=== PATIENT | female | born 1995 | race Caucasian/White ===

== ENCOUNTER → 2016-12-01 | Outpatient (CLI) | payer MEDICAID ==
[~2016-12-01] MED LIST: PREN27TA PO
== END ==
LOC: HPND 10:41
PROVIDERS: ATTEND Family Medicine
DX: Z36 Encounter for antenatal screening of mother (principal)
CPT/HCPCS: 76801

== ENCOUNTER → 2016-12-21 | Outpatient (CLI) | payer MEDICAID | LOC: HPND 08:40 | PROVIDERS: ATTEND Family Medicine | DX: O26.891 Other specified pregnancy related conditions, first trimester (principal); R10.0 Acute abdomen | CPT/HCPCS: 36415; 76813 ==

== ENCOUNTER → 2017-01-25 | Outpatient (CLI) | payer MEDICAID | LOC: HPND 10:49 | PROVIDERS: ATTEND Family Medicine | DX: O28.3 Abnormal ultrasonic finding on antenatal screening of mother (principal); O09.292 Supervision of pregnancy with other poor reproductive or obstetric history, second trimester; Z3A.18 18 weeks gestation of pregnancy | CPT/HCPCS: 76811 ==

== ENCOUNTER → 2017-02-22 | Outpatient (CLI) | payer MEDICAID ==
[~2017-02-22] MED LIST changes: +PRENTAB85; +[UNRECOGNIZED DRUG - CODE] I-DERMAL
== END ==
LOC: HPND 10:49
PROVIDERS: ATTEND Family Medicine
DX: O28.3 Abnormal ultrasonic finding on antenatal screening of mother (principal); Z3A.22 22 weeks gestation of pregnancy
CPT/HCPCS: 76816; 76825; 76827; 93325

== ENCOUNTER → 2017-04-13 | Outpatient (CLI) | payer MEDICAID ==
[~2017-04-13] MED LIST changes: -PREN27TA PO; -[UNRECOGNIZED DRUG - CODE] I-DERMAL
== END ==
LOC: HPND 12:58
PROVIDERS: ATTEND Family Medicine
DX: O28.3 Abnormal ultrasonic finding on antenatal screening of mother (principal); O41.00X0 Oligohydramnios, unspecified trimester, not applicable or unspecified
CPT/HCPCS: 76815

== ENCOUNTER → 2017-04-27 | Outpatient (CLI) | payer MEDICAID | LOC: HPND 09:39 | PROVIDERS: ATTEND Family Medicine | DX: O09.293 Supervision of pregnancy with other poor reproductive or obstetric history, third trimester (principal) | CPT/HCPCS: 76816 ==

== ENCOUNTER 2017-06-27 16:48 | Emergency (ER) | payer MEDICAID ==
--- NOTE | 2017-06-27 17:46 | PD ---
HPI Chief Complaint decreased movement Date Seen: Jun 27, 2017 Time Seen: 17:41 Travel History International Travel<30 Days: No Contact w/Intl Traveler<30Days: No Known Affected Area: No History of Present Illness HPI Patient is a 22-year-old female at 40/2 with a MICHELE of 06/25/17 based on LMP. Presented to the ED from her physician Dr. Beckwith due to reported decreased movement. heart tones in clinic were reassuring. No apparent complications during this . Patient reports that she only felt baby move one time today but since being in the ED she has felt baby move at least twice. Patient is otherwise asymptomatic and denies contractions, vaginal bleeding, loss of fluids. Denies any headaches, vision changes. History Past Medical History Medical History: Denies Significant Hx Obstetric History Obstetric History Prior induced vaginal delivery due to IUGR at 36 weeks. Past Surgical History Narrative Surgical Appendectomy Family History Narrative Family History Maternal history significant for ectopic and miscarriage. Mental health disorder, substance abuse, heart disease, HTN runs in the family Social History Alcohol Use: No Tobacco Use: Yes (Prior smoker of 2 packs per day for 2-3 years. None currently. Quit 1 year ago) Substance Abuse: No Allergies-Medications (Allergen,Severity, Reaction): Coded Allergies: No Known Allergies (Verified Adverse Reaction, Unknown, 04/06/17) Home Meds Reported Medications Vit W/ Ferrous Fumara (Pnv Plus Multivi 27-1 mg) 27 Mg Iron-1 Mg Tab 02/23/17 Review of Systems Except as stated in HPI: all other systems reviewed are Neg Physical Exam Narrative GENERAL: Well-nourished, well-developed patient. SKIN: Warm and dry. HEAD: Normocephalic and atraumatic. EYES: No scleral icterus. No injection or drainage. ENT: No nasal drainage noted. Mucous membranes pink. Airway patent. NECK: Supple, trachea midline. No JVD. CARDIOVASCULAR: Regular rate and rhythm without murmurs, gallops, or rubs. RESPIRATORY: Breath sounds equal bilaterally. No accessory muscle use. ABDOMEN/GI: Abdomen soft Gravid to 40 weeks size GENITOURINARY: Uterine Contractions: none FHT's: Category: 1 Baseline: 130s Reactive: accels present Variability: moderate Decels: none EXTREMITIES: No cyanosis or edema. NEUROLOGICAL: Awake and alert. Motor and sensory grossly within normal limits. Five out of 5 muscle strength in all muscle groups. Normal speech. Data Data Vital Signs Reviewed: Yes Group B Strep: Negative MDM Medical Record Reviewed: Yes Plan Patient is a 22-year-old female at 40/2. Presented due to decreased movement. otherwise uncomplicated. heart tracing reassuring with no evidence of contractions. Patient is otherwise asymptomatic. Since patient is post 40 weeks, will obtain BPP. -If BPP is reassuring we will discharge home with scheduled induction on 09/01 at 6 PM. savannah Bazzi Diagnosis Diagnosis: Primary Impression: 40 weeks gestation of Disposition: DISCHARGE HOME Condition: Stable Gina Good MD, R3 Jun 27, 2017 17:46
--- NOTE | 2017-06-27 19:20 | PD ---
History of Present Illness History of Present Illness BPP report Bedside biophysical profile performed by attending physician for well- being. No anatomic survey her weight was performed Indications: IUP at 40.2, decreased movement, history of delivery for IUGR Biophysical profile was performed which showed greater than 30 seconds breathing movements, greater than 3 extension flexion movements, numerous gross movements, and an ELDA that was 11.38 (4 pockets measured were 3.46, 4.96, 1.70, 1.26 with the 2 larger rockets greater than 2 x 2). NST showed heart rate baseline in the 110s with moderate long-term variability, good accelerations, no decelerations noted. This is a reactive NST and category 1 heart rate tracing Final diagnosis: IUP at 40.2, decreased movement now resolved with patient feeling movements, history of delivery with IUGR but normal growth for this , reassuring testing Follow-up: Follow-up as clinically indicated with kick counts twice daily Heather Bazzi MD Jun 27, 2017 19:20
== END 2017-06-27 19:40 | disposition home or self-care (01) ==
LOC: HOBED 16:48
DX: O36.8130 Decreased fetal movements, third trimester, not applicable or unspecified (principal); Z3A.40 40 weeks gestation of pregnancy; Z87.891 Personal history of nicotine dependence
CPT/HCPCS: 59025; 76815; 86403; 87081; 87147

== ENCOUNTER 2017-07-02 17:56 | Inpatient (IN) | payer MEDICAID ==
[2017-07-02] VITALS (8 sets, daily range): BP systolic 120–141; BP diastolic 65–82; PULSE 64–80; RESP 15–20; TEMP 98.1; O2SAT 100
[~2017-07-02] VITALS: Ht 165.1 cm; Wt 78.0 kg
[2017-07-02] MEDS ORDERED: LACTATED RINGER'S 1000 ML INJ 1,000 ML IV PRN (18:23)
[2017-07-02] MEDS ORDERED: LACTATED RINGER'S 1000 ML INJ 1,000 ML IV SCH (18:23)
[2017-07-02] MEDS ORDERED: MINERAL OIL 10 ML VIAL TOPICAL PRN (18:30)
[2017-07-02] MEDS ORDERED: LIDOCAINE HCL 1% 50 ML VIAL INFIL PRN (18:30)
[2017-07-02] MEDS ORDERED: SODIUM CHLORID 0.9% 500 ML INJ 500 ML IV PRN (18:30)
[2017-07-02] MEDS ORDERED: CITRIC ACID-SODIUM CITRATE LIQ 30 ML UDC PO SCH (18:30)
[2017-07-02] MEDS ORDERED: LIDOCAINE HCL 1% 50 ML VIAL I-DERMAL PRN (18:30)
[2017-07-02] MEDS ORDERED: OXYTOCIN 30 UNITS-500ML PREMIX 500 ML IV ONE (18:30)
[2017-07-02] MEDS ORDERED: ONDANSETRON HCL 4 MG/2 ML VIAL IV PUSH PRN (18:30)
--- NOTE | 2017-07-02 18:35 | HHI.HP ---
HPI Chief Complaint induction Date Seen: Jul 02, 2017 Time Seen: 18:28 Travel History International Travel<30 Days: No Contact w/Intl Traveler<30Days: No History of Present Illness HPI 22 y/o at 41 weeks presents for induction. She sees Dr. Mota for her care. Denies any complaints today. No vaginal bleeding, loss of fluids , contractions. Endorses movement. Weeks Gestation: 41 Para: 1 : 2 History Past Medical History Narrative Medical Anxiety Obstetric History Obstetric History in 2016 Past Surgical History Surgical History: No Previous Surgery Family History Family History: Negative Social History Alcohol Use: No Tobacco Use: No Substance Abuse: No Allergies-Medications (Allergen,Severity, Reaction): Coded Allergies: No Known Allergies (Verified Adverse Reaction, Unknown, 04/06/17) Home Meds Reported Medications Ferrous Gluconate (Iron) 236 Mg (27 Mg Iron) Tab 07/02/17 Vit W/ Ferrous Fumara (Pnv Plus Multivi 27-1 mg) 27 Mg Iron-1 Mg Tab 02/23/17 Review of Systems General / Constitutional: Weight Gain, No: Fever, Weight Loss, Chills, Other Eyes: No: Diploplia, Blurred Vision, Visual changes, Pain, Photophobia HENT: No: Headaches, Vertigo, Lightheadedness Cardiovascular: No: Irregular Rhythm, Chest Pain or Discomfort, Palpitations, Tachycardia, Syncope, Varicosities, Edema, Cyanosis Respiratory: No: Cough, Short of Breath, Other Gastrointestinal: No: Nausea, Vomiting, Diarrhea Genitourinary: No: Decreased Urinary Output, Oliguria Musculoskeletal: No: Limited ROM, Weakness, Cramping, Edema, Pain Skin: No Rash, No Itching, No Dryness, No Lumps, No Change in Pigmentation, No Change in Nails, No Alopecia, No Lesions Neurologic: No: Weakness, Dizziness, Syncope, Focal Abnormalities, Coordination Problem, Headache, Slurred Speech, Seizures Psychiatric: No: Depression, Suicidal Ideations, Homicidal Ideation Endocrine: No: Heat Intolerance, Cold Intolerance, Polydipsia, Polyuria, Other Physical Exam Narrative GENERAL: Well-nourished, well-developed patient. SKIN: Warm and dry. HEAD: Normocephalic and atraumatic. EYES: No scleral icterus. No injection or drainage. ENT: No nasal drainage noted. Mucous membranes pink. Airway patent. NECK: Supple, trachea midline. No JVD. CARDIOVASCULAR: Regular rate and rhythm without murmurs, gallops, or rubs. RESPIRATORY: Breath sounds equal bilaterally. No accessory muscle use. ABDOMEN/GI: Abdomen soft, non-tender, bowel sounds present, no rebound, no guarding Gravid to 41 weeks size GENITOURINARY: External Genitalia: intact and normal in appearance Cervix: soft Dilatation: 2 Effacement: 80 Station: -2 Presentation: vertex Membranes: intact Uterine Contractions: none FHT's: Category: 1 Baseline: 130 Reactive: yes Variability: moderate Decels: none EXTREMITIES: No cyanosis or edema. BACK: Nontender without obvious deformity. No CVA tenderness. NEUROLOGICAL: Awake and alert. Motor and sensory grossly within normal limits. Five out of 5 muscle strength in all muscle groups. Normal speech. Caprini VTE Risk Assessment Caprini VTE Risk Assessment: No/Low Risk (score <= 1) Caprini Risk Assessment Model Point Value = 1 Point Value = 2 Point Value = 3 Point Value = 5 Age 41-60 Minor surgery BMI > 25 kg/m2 Swollen legs Varicose veins or History of unexplained or recurrent spontaneous Oral contraceptives or hormone replacement Sepsis (< 1 month) Serious lung disease, including pneumonia (< 1 month) Abnormal pulmonary function Acute myocardial infarction Congestive heart failure (< 1 month) History of inflammatory bowel disease Medical patient at bed rest Age 61-74 Arthroscopic surgery Major open surgery (> 45 min) Laparoscopic surgery (> 45 min) Malignancy Confined to bed (> 72 hours) Immobilizing plaster cast Central venous access Age >= 75 History of VTE Family history of VTE Factor V Leiden Prothrombin [id number] Lupus anticoagulant Anticardiolipin antibodies Elevated serum homocysteine Heparin-induced thrombocytopenia Other congenital or acquired thrombophilia Stroke (< 1 month) Elective arthroplasty Hip, pelvis, or leg fracture Acute spinal cord injury (< 1 month) Prophylaxis Regimen Total Risk Factor Score Risk Level Prophylaxis Regimen 0-1 Low Early ambulation 2 Moderate Order ONE of the following: *Sequential Compression Device (SCD) *Heparin 5000 units SQ BID 3-4 Higher Order ONE of the following medications: *Heparin 5000 units SQ TID *Enoxaparin/Lovenox 40 mg SQ daily (WT < 150 kg, CrCl > 30 mL/min) *Enoxaparin/Lovenox 30 mg SQ daily (WT < 150 kg, CrCl > 10-29 mL/min) *Enoxaparin/Lovenox 30 mg SQ BID (WT < 150 kg, CrCl > 30 mL/min) AND/OR *Sequential Compression Device (SCD) 5 or more Highest Order ONE of the following medications: *Heparin 5000 units SQ TID (Preferred with Epidurals) *Enoxaparin/Lovenox 40 mg SQ daily (WT < 150 kg, CrCl > 30 mL/min) *Enoxaparin/Lovenox 30 mg SQ daily (WT < 150 kg, CrCl > 10-29 mL/min) *Enoxaparin/Lovenox 30 mg SQ BID (WT < 150 kg, CrCl > 30 mL/min) AND *Sequential Compression Device (SCD) Data Data Vital Signs Reviewed: Yes Orders Orders Admit To Inpatient (07/02/17 ) Code Status (07/02/17 18:23) Vital Signs (Adult) .Per protocol (07/02/17 18:23) Activity Oob Ad Maegan (07/02/17 18:23) Heart (07/02/17 18:23) Amnioinfusion (07/02/17 18:23) Urinary Catheter Management .ONCE (07/02/17 18:23) Diet Liquid (07/02/17 Dinner) Lactated Ringer's 1000 Ml Inj (Lr 1000 M (07/02/17 18:23) Lactated Ringer's 1000 Ml Inj (Lr 1000 M (07/02/17 18:23) Sodium Chlorid 0.9% 500 Ml Inj (Ns 500 M (07/02/17 18:30) Sodium Chlor 0.9% 1000 Ml Inj (Ns 1000 M (07/02/17 18:43) Lidocaine 1% Inj (50 Ml) (Xylocaine 1% I (07/02/17 18:30) Citric Acid-Sodium Citrate Liq (Bicitra (07/02/17 18:30) Ondansetron Inj (Zofran Inj) (07/02/17 18:30) Fentanyl Inj (Fentanyl Inj) (07/02/17 18:30) Fentanyl Inj (Fentanyl Inj) (07/02/17 18:30) Complete Blood Count With Diff (07/02/17 18:23) Hold Clot (07/02/17 18:23) Abo/Rh Blood Type (07/02/17 18:23) Urinalysis - C+S If Indicated (07/02/17 18:23) Drug Screen, Random Urine (07/02/17 18:23) Ob/Psych Drug Screen, Urine (07/02/17 18:23) Resp Oxygen Non Rebreathe Mask (07/02/17 ) ^ Epidural / Intrathecal Infus (07/02/17 18:23) Oxytocin 30 Units-500ml Premix (Pitocin (07/02/17 18:30) Lidocaine 1% Inj (50 Ml) (Xylocaine 1% I (07/02/17 18:30) Light Mineral Oil (Muri-Lube Oil) (07/02/17 18:30) Inpatient Certification (07/02/17 ) Specimen To Be Collected PRN (07/02/17 18:23) Specimen To Be Collected PRN (07/02/17 18:23) Group B Strep: Negative Assessment/Plan Assessment and Plan 22 y/o at 41/0 weeks presents for induction. GBS negative Category 1 FHT Cervical exam: /-2 -Plan for induction of labor with low dose Pitocin -Continuous FHT -Plan for vaginal delivery -Expectant management Raoul Hylton MD Jul 02, 2017 18:34
[2017-07-02] MEDS ORDERED: IRON27TA (18:41)
[2017-07-02] MEDS ORDERED: SODIUM CHLOR 0.9% 1000 ML INJ 1,000 ML IV PRN (18:43)
[2017-07-02] MEDS ORDERED: OXYTOCIN 30 UNITS-500ML PREMIX 500 ML IV PRN (18:45)
[2017-07-02 18:49] LABS: AUTOMATED NEUTROPHIL # 5.1 TH/MM3 (1.8-7.7); BASOPHIL % 0.5 % (0.0-2.0); EOSINOPHIL % 0.5 % (0.0-4.0); HEMATOCRIT 28.4 % (35.0-46.0); HEMOGLOBIN 9.4 GM/DL (11.6-15.3); LYMPH % 25.9 % (9.0-44.0); MEAN CELL VOLUME 76.6 FL (80.0-100.0); MEAN CORPUSCULAR HEMOGLOBIN 25.4 PG (27.0-34.0); MEAN CORPUSCULAR HGB CONC 33.1 % (32.0-36.0); MEAN PLATELET VOLUME 9.1 FL (7.0-11.0); MONO % 7.2 % (0.0-8.0); MONOCYTE # 0.6 TH/MM3 (0-0.9); NEUT % 65.9 % (16.0-70.0); PLATELET COUNT 149 TH/MM3 (150-450); RED CELL DISTRIBUTION WIDTH 14.7 % (11.6-17.2); WHITE BLOOD COUNT 7.7 TH/MM3 (4.0-11.0)
[2017-07-02 18:53] LABS: AMORPHOUS SEDIMENT, URINE RARE; BACTERIA, URINE RARE /hpf; BILIRUBIN, URINE NEG (NEG); BLOOD, URINE NEG (NEG); GLUCOSE,URINE NEG (NEG); KETONE, URINE NEG (NEG); MUCUS URINE FEW /lpf (OCC); NITRITE,URINE NEG (NEG); SQUAMOUS EPITHELIAL CELL URINE 24 /hpf (0-5); URINE COLOR YELLOW (YELLW/STRAW); URINE LEUKOCYTE ESTERASE TRACE (NEG)
--- NOTE | 2017-07-02 22:39 | PD.LABORPN ---
Subjective Subjective Patient is breathing through contractions with family at bedside. Objective Vital Signs Vital Signs Date Time Temp Pulse Resp B/P (MAP) Pulse Ox O2 Delivery O2 Flow Rate FiO2 07/02/17 20:30 15 07/02/17 20:05 80 120/65 (83) Objective Pelvic Exam: Cervix: posterior Dilatation: 3 Effacement: 80 Station: -2 Presentation: vertex Membranes: intact Uterine Contractions: q2-3min FHT's: Category: I Baseline: 120 Reactive: + Variability: moderate Decels: none Weeks Gestation: 41 Assessment/Plan Assessment and Plan 22 year old at 41-0/7 weeks gestation. 1. IUP- Category I tracing, reassuring. 2. IOL- Cervical change noted, continue with Pitocin 04-10-29 3. GBS negative 4. Anticipate vaginal delivery. savannah Mota,Willow Shaw MD, R3 Jul 02, 2017 22:39
[2017-07-02] MEDS ORDERED: fentaNYL 2MCG-BUPIV 0.125% INJ 100 ML ONE (23:30)
[2017-07-03] VITALS (39 sets, daily range): BP systolic 109–142; BP diastolic 31–86; PULSE 64–117; RESP 7–18; TEMP 97.8–98.2; O2SAT 98–100
[2017-07-03] MEDS ORDERED: NO SYSTEM NARCOTICS PRN (00:15)
[2017-07-03] MEDS ORDERED: DO NOT ADMINISTER ANTICOAGULANTS PRN (00:15)
[2017-07-03] MEDS ORDERED: fentaNYL 2MCG-BUPIV 0.125% 100 ML EPIDURAL SCH (00:15)
[2017-07-03] MEDS ORDERED: ePHEDrine/NS 25 MG/5 ML SYRINGE IV PUSH PRN (00:15)
--- NOTE | 2017-07-03 03:10 | PD.OB.DELI ---
Weeks gestation: 41 Pt started active labor?: Yes Medical induction of labor?: Yes Artificial rupture of membrane: No Anesthesia: Epidural Episiotomy: None Vaginal Delivery: Normal, Spontaneous Presentation: Occiput anterior Nuchal Cord: None Delayed cord clamping (45 sec): Yes Infant: Female Delivery date: Jul 03, 2017 Delivery time: 02:59 One Minute : 9 Five Minute : 9 Weight: pending Placenta: Spontaneous delivery, Intact Laceration: No lacerations Estimated blood loss: 500cc Matthew Terry Jr., MD Jul 03, 2017 03:10
[2017-07-03] MEDS ORDERED: ONDANSETRON ODT 4 MG TAB PO PRN (03:15)
[2017-07-03] MEDS ORDERED: OXYTOCIN 30 UNITS-500ML PREMIX 500 ML IV SCH (03:15)
[2017-07-03] MEDS ORDERED: DOCUSATE SODIUM 50 MG/SENNA 8.6 MG TAB PO PRN (03:15)
[2017-07-03] MEDS ORDERED: WITCH HAZEL 50%/GLYCERIN 12.5% 40 PAD JAR TOPICAL PRN (03:15)
[2017-07-03] MEDS ORDERED: SODIUM CHLORIDE 0.9% FLUSH 10 ML FLUSH IV FLUSH PRN (03:15)
[2017-07-03] MEDS ORDERED: ZOLPIDEM TARTRATE 5 MG TAB PO PRN (03:15)
[2017-07-03] MEDS ORDERED: ALUMINUM/MAGNESIUM/SIMETH 30 ML CUP PO PRN (03:15)
[2017-07-03] MEDS ORDERED: BENZOCAINE 20% TOPICAL SPRAY 60 ML CAN TOPICAL PRN (03:15)
[2017-07-03] MEDS ORDERED: ACETAMINOPHEN 325 MG TAB PO PRN (03:15)
[2017-07-03] MEDS ORDERED: oxyCODONE/ACETAMINOPHEN 5 MG/325 MG TAB PO PRN ×2 (03:15)
--- NOTE | 2017-07-03 07:42 | HHI.OB ---
Subjective Remarks PPD day # 0. No acute issues overnight, vitals are stable, patient remains afebrile. Decreasing lochia and pain. Patient is ambulating without difficulty and voiding independently. She is feeding the baby via breast/formula. She denies any nausea or vomiting and has a good appetite. Positive flatus/bowel movement. She denies any calf pain, chest pain, or shortness of breath. She is bonding well with . Objective Vitals/I&O Vital Signs Date Time Temp Pulse Resp B/P (MAP) Pulse Ox O2 Delivery O2 Flow Rate FiO2 07/03/17 05:00 98.0 76 7 109/58 (75) 07/03/17 05:00 18 07/03/17 04:00 80 122/57 (78) 07/03/17 03:46 79 115/31 (59) 07/03/17 03:30 81 128/63 (84) 07/03/17 03:23 98.2 92 119/69 (86) 07/03/17 03:20 18 07/03/17 02:50 101 07/03/17 02:45 117 07/03/17 02:40 104 07/03/17 02:35 108 07/03/17 02:30 86 07/03/17 02:30 73 134/85 (101) 07/03/17 02:25 84 07/03/17 02:20 74 07/03/17 02:15 70 07/03/17 02:10 64 100 07/03/17 02:00 76 114/70 (85) 07/03/17 01:55 81 100 07/03/17 01:50 87 100 07/03/17 01:45 81 100 07/03/17 01:40 80 100 07/03/17 01:25 74 07/03/17 01:25 99 07/03/17 01:20 100 07/03/17 01:20 74 07/03/17 01:15 100 07/03/17 01:15 80 07/03/17 01:10 100 07/03/17 01:10 93 07/03/17 01:05 90 07/03/17 01:05 100 07/03/17 01:00 79 116/72 (87) 07/03/17 01:00 82 07/03/17 01:00 100 07/03/17 00:55 79 07/03/17 00:55 100 07/03/17 00:50 82 100 07/03/17 00:40 104 100 07/03/17 00:35 79 99 07/03/17 00:30 92 07/03/17 00:30 92 114/64 (81) 100 07/03/17 00:25 86 98 07/03/17 00:20 89 99 07/03/17 00:15 97 07/03/17 00:15 100 137/79 (98) 100 07/03/17 00:10 83 98 07/03/17 00:05 81 98 07/03/17 00:00 79 142/86 (104) 99 07/03/17 00:00 92 07/03/17 00:00 18 07/02/17 23:57 73 140/76 (97) 07/02/17 23:55 76 141/81 (101) 100 07/02/17 23:55 70 07/02/17 23:50 69 100 07/02/17 23:50 20 07/02/17 23:50 64 132/82 (99) 07/02/17 23:45 65 100 07/02/17 23:45 69 136/74 (94) 07/02/17 23:41 68 120/78 (92) 07/02/17 22:00 98.1 07/02/17 20:30 15 07/02/17 20:05 80 120/65 (83) Objective Remarks GENERAL: Well-nourished, well-developed patient. CARDIOVASCULAR: Regular rate and rhythm without murmurs, gallops, or rubs. RESPIRATORY: Breath sounds equal bilaterally. No accessory muscle use. ABDOMEN/GI: Abdomen soft, non-tender. Fundus: Firm, non-tender at umbilicus. GENITOURINARY: Light to moderate bleeding. EXTREMITIES: No cyanosis or edema, non-tender, without signs of DVT. Medications and IVs Current Medications Medications (Trade) Dose Ordered Sig/Elizabeth Route Start Time Stop Time Status Last Admin (NS Flush) 2 ml BID IV FLUSH 07/03/17 09:00 (NS Flush) 2 ml UNSCH PRN IV FLUSH 07/03/17 03:15 Oxytocin 500 ml @ 100 mls/hr CONTINUOUS IV 07/03/17 03:15 07/03/17 08:14 (Tylenol) 650 mg Q4H PRN PO 07/03/17 03:15 (Motrin) 800 mg Q8H PRN PO 07/03/17 03:15 (Percocet 5-325 Mg) 1 tab Q4H PRN PO 07/03/17 03:15 (Percocet 5-325 Mg) 2 tab Q4H PRN PO 07/03/17 03:15 (Americaine 20% Top Spr) 1 spray Q4H PRN TOPICAL 07/03/17 03:15 07/03/17 05:05 (Tucks Pads) 1 applic QID PRN TOPICAL 07/03/17 03:15 07/03/17 05:05 (Christa-Colace) 2 tab Q12H PRN PO 07/03/17 03:15 (Ambien) 5 mg HS PRN PO 07/03/17 03:15 (M-M-R Ii Inj) 0.5 ml ONCE ONCE SQ 07/03/17 16:00 07/03/17 16:01 (Boostrix Inj) 0.5 ml ONCE ONCE IM 07/03/17 16:00 07/03/17 16:01 (Mag-Al Plus Susp Liq) 15 ml Q8H PRN PO 07/03/17 03:15 (Zofran Odt) 4 mg Q6H PRN PO 07/03/17 03:15 Assessment/Plan Assessment and Plan 22 y/o female who is PPD # 0 s/p . -Continue routine care. -Percocet and Motrin PRN pain. -Encouraged OOB. Advised pelvic rest for 6 wks. -Re: ctrl, she would like to consider her option. - Discharge home in 1-[address] Mara Mota,Willow Shaw MD, R3 Jul 03, 2017 07:42
[2017-07-03] MEDS: IBUPROFEN 800 MG TAB PO PRN ×2 (08:09→16:05)
[2017-07-03] MEDS ORDERED: SODIUM CHLORIDE 0.9% FLUSH 10 ML FLUSH IV FLUSH SCH (09:00)
[2017-07-03] MEDS ORDERED: MEASLES, MUMPS, RUBELLA VACCINE 0.5 ML VIAL SQ ONE (16:00)
[2017-07-03] MEDS ORDERED: DIPHTH/TETANUS/ACEL PERTUSSIS (BOOSTER) 0.5 ML VIAL/PFS IM ONE (16:00)
[2017-07-04] MEDS: IBUPROFEN 800 MG TAB PO PRN ×2 (01:08→11:16)
--- NOTE | 2017-07-04 07:12 | HHI.OB ---
Subjective Remarks PPD day # 1. No acute issues overnight, vitals are stable, patient remains afebrile. Decreasing lochia and pain. Patient is ambulating without difficulty and voiding independently. She is feeding the baby via breast/formula. She has been working with the managed services sales consultant. She denies any nausea or vomiting and has a good appetite. Positive flatus/bowel movement. She denies any calf pain, chest pain, or shortness of breath. She does note worsening back pain over the past day at the site of her epidural described as a muscle soreness. She denies any fever or chills. She is bonding well with infant. Objective Vitals/I&O Vital Signs Date Time Temp Pulse Resp B/P (MAP) Pulse Ox O2 Delivery O2 Flow Rate FiO2 07/03/17 20:00 83 18 109/69 (82) 07/03/17 20:00 98.1 99 07/03/17 07:40 97.8 69 16 135/68 (90) 98 07/03/17 07:40 97.8 69 16 135/68 (90) 98 Objective Remarks GENERAL: Well-nourished, well-developed patient. CARDIOVASCULAR: Regular rate and rhythm without murmurs, gallops, or rubs. RESPIRATORY: Breath sounds equal bilaterally. No accessory muscle use. ABDOMEN/GI: Abdomen soft, non-tender. Fundus: Firm, non-tender at umbilicus. BACK: Tenderness to palpation along lumbar paraspinal muscles and point tenderness at site of epidural without erythema, warmth, or edema. Full ROM. GENITOURINARY: Light to moderate bleeding. EXTREMITIES: No cyanosis or edema, non-tender, without signs of DVT. Medications and IVs Current Medications Medications (Trade) Dose Ordered Sig/Elizabeth Route Start Time Stop Time Status Last Admin (NS Flush) 2 ml BID IV FLUSH 07/03/17 09:00 (NS Flush) 2 ml UNSCH PRN IV FLUSH 07/03/17 03:15 (Tylenol) 650 mg Q4H PRN PO 07/03/17 03:15 (Motrin) 800 mg Q8H PRN PO 07/03/17 03:15 07/04/17 01:08 (Percocet 5-325 Mg) 1 tab Q4H PRN PO 07/03/17 03:15 (Percocet 5-325 Mg) 2 tab Q4H PRN PO 07/03/17 03:15 (Americaine 20% Top Spr) 1 spray Q4H PRN TOPICAL 07/03/17 03:15 07/03/17 05:05 (Tucks Pads) 1 applic QID PRN TOPICAL 07/03/17 03:15 07/03/17 05:05 (Christa-Colace) 2 tab Q12H PRN PO 07/03/17 03:15 07/03/17 08:09 (Ambien) 5 mg HS PRN PO 07/03/17 03:15 (Mag-Al Plus Susp Liq) 15 ml Q8H PRN PO 07/03/17 03:15 (Zofran Odt) 4 mg Q6H PRN PO 07/03/17 03:15 Assessment/Plan Assessment and Plan 22 y/o female who is PPD # 1 s/p . -Continue routine care. -Percocet and Motrin PRN pain. -Encouraged OOB. Advised pelvic rest for 6 wks. -Back pain- physical exam reassuring, likely MSK pain. Encourage ambulation, stretching, and heat/ice PRN. -Re: ctrl she would like Depot-Provera - Discharge home today. Follow-up with Dr. Mota in 4-6 weeks. dw Willow Dewitt MD, R3 Jul 04, 2017 07:12
--- NOTE | 2017-07-04 07:16 | HHI.PCNN ---
Subjective Note Status: Progress Note History of Present Illness female born at 40 weeks gestation, AGA. Born via vaginal delivery on and 025 with rupture of membranes on 07/03 at 0143. Apgars 9/9. GBS negative. A+/A+/Chava negative. weight 3230 g. Feeding via breast and formula. Objective Patient Weight 78 kg Rembert Exam General Appearance: Appropriate for Gestational Age Skin: Normal (e tox) Jaundice: No Head: Normal Eyes Red Reflex: Normal Ears, Nose & Throat: Normal Thorax: Normal Lungs: Normal Heart: Normal Peripheral Pulses: Normal Abdomen: Normal Genitals: Normal Trunk and Spine: Normal Extremities: Normal Clavicles: Normal Hips: Stable Anus: Normal Willow Mota MD, R3 Jul 04, 2017 07:16
--- NOTE | 2017-07-04 07:20 | HHI.DCPOC ---
Discharge Care Plan Diagnosis: (1) (spontaneous vaginal delivery) Report Symptoms to Your Doctor -Temperature above 100.5 degrees -Redness, of incision or excessive or foul smelling drainage -Unusual pain or calf pain -Increased vaginal bleeding -Painful or difficulty urinating -Feelings of extreme sadness or anxiety after 2 weeks Goals to Promote Your Health * To prevent worsening of your condition and complications * To maintain your health at the optimal level Directions to Meet Your Goals Take your medications as prescribed Follow your dietary instruction Follow activity as directed Ensure plenty of rest for recovery Drink fluids for hydration Keep your appointments as scheduled Take your immunizations and boosters as scheduled If your symptoms worsen call your PCP, if no PCP go to Urgent Care Center or Emergency Room Smoking is Dangerous to Your Health. Avoid second hand smoke Call the 24-hour crisis hotline for domestic abuse at Willow Mota MD, R3 Jul 04, 2017 07:20
[2017-07-04] MEDS ORDERED: IBUP1TAB7 PO (07:21)
[2017-07-04] MEDS ORDERED: PERI PO (07:21)
[2017-07-04] MEDS ORDERED: medroxyPROGESTERone ACETATE SUSP 150 MG/ML SYRINGE IM ONE (08:15)
[2017-07-04 08:20] VITALS: BP 138/65; PULSE 76; RESP 16; TEMP 97.8
== END 2017-07-04 16:06 | disposition home or self-care (01) | DRG 775 ==
LOC: H2EA 17:56 → H1EA 07-03 05:46
PROVIDERS: ADMIT Obstetrics & Gynecology; ATTEND Obstetrics & Gynecology
PROC: 3E033VJ Introduction of Other Hormone into Peripheral Vein, Percutaneous Approach (ICD-10-PCS; 2017-07-02)
PROC: 00HU33Z Insertion of Infusion Device into Spinal Canal, Percutaneous Approach (ICD-10-PCS; 2017-07-02)
PROC: 3E0R3BZ Introduction of Anesthetic Agent into Spinal Canal, Percutaneous Approach (ICD-10-PCS; 2017-07-02)
PROC: 10E0XZZ Delivery of Products of Conception, External Approach (ICD-10-PCS; principal; 2017-07-03)
DX: O48.0 Post-term pregnancy (principal); Z37.0 Single live birth; Z3A.41 41 weeks gestation of pregnancy
CPT/HCPCS: 59025; 80307; 81001; 85025; 86900; 86901; J2590; J3010; J7120